=== PATIENT | female | born 1970 | race Caucasian/White ===

== ENCOUNTER → 2024-04-02 12:13 | Outpatient (REF) | payer BC, SELFPAY | LOC: HWRAD 12:13 | PROVIDERS: ATTENDING PHYSICIAN Family Medicine | DX: M54.50 Low back pain, unspecified (principal) | CPT/HCPCS: 72110; 72170 ==

== ENCOUNTER 2025-06-05 21:24 | Emergency (ER) | payer BC, SELFPAY ==
[2025-06-05 21:25] VITALS: BP 127/81
--- NOTE | 2025-06-05 22:54 | ED.GENMED ---
History of Present Illness
<June Buck DO, Resident - Last Filed: 06/06/25 00:49>
General
Chief Complaint: Back Pain
Source: patient
Exam Limitations: none
Time Seen by Provider: 06/05/25 22:54
Nursing documentation reviewed up to this point in time: agreed with
History of Present Illness
History of Present Illness:
Patient is a 54-year-old female PMH hypothyroidism presenting with pain in left hip and lower back. Patient is in usual state of health until today about 7 PM when she was walking down her driveway while carrying a 20 pound package. Patient felt a
'pop' in her left hip followed by excruciating pain. Patient says the pain starts in her low back and radiates to the front near her pubic bone. Patient states she was in so much pain she threw up. Patient denies this ever happening before.
Patient does have a history of bursitis in the left hip. Patient describes the pain as 10 out of 10. Patient states she is more comfortable with her left leg flexed. Patient can bear weight. Patient denies urinary symptoms. Patient denies all
other ROS.
Past History
<June Buck DO, Resident - Last Filed: 06/06/25 00:49>
Past History
ED Past Medical History: Hypothyroidism and Other (uterine fibroids)
Review of Systems
<June Buck DO, Resident - Last Filed: 06/06/25 00:49>
Review of Systems
Allergies reviewed?: Yes
All Other Systems: ROS reviewed and negative except as documented in HPI and ROS
Constitutional: Reports no symptoms
EENT: Reports no symptoms
Respiratory: Reports no symptoms
Cardiac: Reports no symptoms
ABD/GI: Reports vomiting and other (Lower abdominal pain left-sided)
: Reports flank pain (Left-sided)
Musculoskeletal: Reports joint pain (Sacroiliac pain) and back pain
Skin: Reports no symptoms
Neurological: Reports no symptoms
Endocrine: Reports no symptoms
Hematologic/Lymphatic: Reports no symptoms
Psychiatric: Reports no symptoms
Phy Exam
<June Buck DO, Resident - Last Filed: 06/06/25 00:49>
General Physical Exam
General Presentation: moderate distress
General age: appears stated age
General Skin: warm and dry
General Habitus: normal
Cardiovascular Exam
Cardiovascular Exam: regular rate/rhythm
Heart Sounds: normal
Pulmonary Exam
Pulmonary Exam: lungs clear, no respiratory distress, no crackles and no wheezing
Gastrointestinal Exam
Gastrointestinal Exam: normal bowel sounds, non tender, soft and non distended
Neurological Exam
Neurological Exam: alert and oriented x3
Musculoskeletal Exam
Musculoskeletal Exam: back tenderness and other (Pain on palpation of the left hip left lower back and sacroiliac joint.)
Skin Exam
Skin Exam: normal color
Course
<June Buck DO, Resident - Last Filed: 06/06/25 00:49>
Orders/Labs/Results
Orders:
Orders
06/05/25 23:14
CT Abd/pelvis Wo Iv Cont Urgent
Comment:
Reason For Exam: Hip and lower abdominal pain, CVA tenderness
Ketorolac [Toradol] 30 mg IV NOW STA
Ondansetron Injectable [Zofran] 4 mg IV NOW STA
06/06/25 00:02
HYDROmorphone [Dilaudid] 0.5 mg IV NOW STA
06/06/25 00:59
Ondansetron Injectable [Zofran] 4 mg IV NOW STA
06/06/25 01:05
Scopolamine [Transderm-Scop] 1 patch TRANSDERM NOW STA
Vital Signs
Initial and Last Documented VS:
Initial Vital Signs
Temp Pulse Resp BP Pulse Ox
98.0 F 106 20 127/81 99
08/20/25 21:25 06/05/25 21:25 06/05/25 21:25 06/05/25 21:25 06/05/25 21:25
Last Documented Vital Signs
Temp Pulse Resp BP Pulse Ox
98.0 F 80 18 136/72 99
06/05/25 21:25 06/05/25 23:59 06/05/25 23:59 06/05/25 23:59 06/05/25 23:59
<Cintia Dickinson DO - Last Filed: 06/06/25 01:17>
Orders/Labs/Results
Orders:
Orders
06/05/25 23:14
CT Abd/pelvis Wo Iv Cont Urgent
Comment:
Reason For Exam: Hip and lower abdominal pain, CVA tenderness
Ketorolac [Toradol] 30 mg IV NOW STA
Ondansetron Injectable [Zofran] 4 mg IV NOW STA
06/06/25 00:02
HYDROmorphone [Dilaudid] 0.5 mg IV NOW STA
06/06/25 00:59
Ondansetron Injectable [Zofran] 4 mg IV NOW STA
06/06/25 01:05
Scopolamine [Transderm-Scop] 1 patch TRANSDERM NOW STA
Vital Signs
Initial and Last Documented VS:
Initial Vital Signs
Temp Pulse Resp BP Pulse Ox
98.0 F 106 20 127/81 99
06/05/25 21:25 06/05/25 21:25 06/05/25 21:25 06/05/25 21:25 06/05/25 21:25
Last Documented Vital Signs
Temp Pulse Resp BP Pulse Ox
98.0 F 80 18 136/72 99
06/05/25 21:25 06/05/25 23:59 06/05/25 23:59 06/05/25 23:59 06/05/25 23:59
<June Buck DO, Resident - Last Filed: 06/06/25 00:49>
MDM/Problems Addressed
Differential Diagnosis Includes:
SI joint sprain/strain, kidney stone
MDM/Problems Addressed:
Zofran and Toradol for symptom management. Put in CTAP Non-con
12:10 CT revealed a soft tissue density mass within the right adnexa abutting the right aspect of the uterus measuring 6.7X 4.0 cm likely an exophytic fibroid. Patient has known history of fibroids followed by gynecology.
Patient's pain not alleviated by Toradol. Will give 0.5 Dilaudid for pain management. Nausea improved with zofran.
Will discharge with referral to ortho, recomendations for rest, ice, NSAIDs and will give short course of percocet. Patient does not want crutches or zofran prescription.
<June Buck DO, Resident - Last Filed: 06/06/25 00:49>
*Pulse Oximetry
SaO2: 99
Oxygen Mode of Delivery: Room air
Patient hypoxic: no
<Cintia Dickinson DO - Last Filed: 06/06/25 01:17>
*Radiology
Radiology exam reviewed: radiology read reviewed
*Critical Care Note
Total Time (30-74mins, 75-104mins- exclusive of procedures): Not Applicable
ED Attending Note
<June Buck DO, Resident - Last Filed: 06/06/25 00:49>
-
Portions of this chart may have been created with voice recognition software.� Occasional wrong word or��sound alike� substitutions may have occurred due to the inherent limitations of voice recognition software.
<Cintia Dickinson DO - Last Filed: 06/06/25 01:17>
ED Attending Note
Patient seen and examined by attending physician: Yes
I performed the substantive portion of visit, reviewed & personally made and approve the management plan that is documented in note by myself or CHAD.: Yes
ED Attending Note:
This is a 54-year-old woman with no significant past medical history save for hypothyroidism, basal cell skin cancer removal.
She states tonight around 7:30 PM she bent over to bean picker a 20 pound object and wall walking up her driveway, carrying said object she felt a sudden pop in her left hip with sudden severe pain left posterior lateral hip that radiates to her left
lower quadrant. She denies fall. No weakness nor numbness. No history of similar episodes of pain. She does note some nausea and vomiting associated with severe pain.
She is able to bear some weight but admits that left hip pain is worse with extension and with bearing weight, improved slightly with hip and knee flexed.
She has not taken anything for discomfort.
She denies dysuria and urgency and or hematuria. No saddle anesthesia. No radiation of pain down her leg.
54-year-old woman appears her stated age, awake and alert, appears in moderate distress. Lying Semi-[place]'s on stretcher, left hip and knee slightly flexed. Somewhat resistant to move.
Skin is warm and dry, normal color. No rash.
Heart is regular rate and rhythm.
Lungs are clear to auscultation. No respiratory distress.
Abdomen is soft, nontender, no palpable masses. Mild left CVA tenderness to palpation.
There is mild to moderate tenderness left lateral hip, moderate to exquisite tenderness left SI joint. There is full passive range of motion left hip with mild increased pain of left hip with full extension as well as with internal rotation. There
is no leg length discrepancy.
Mild tenderness left lower lumbar paravertebral musculature. No midline bony vertebral tenderness.
Extremities: Peripheral pulses are full and equal bilaterally. No clubbing or cyanosis nor edema. Strength and sensation intact.
No focal neuro deficits. Awake alert and oriented x 3.
Concern for acute sprain strain left hip/left SI joint, acute lumbosacral strain sprain. Other consideration is renal colic/left ureteric stone.
Abdomen is soft without appreciable tenderness. Diverticulitis, colitis, UTI are unlikely.
Will medicate for pain and nausea with Toradol and Zofran. Will plan for CT abdomen pelvis without IV contrast.
00:15
Telephone call from [facility] radiologist. CAT scan shows a right pelvic solid mass that appears to be an exophytic fibroid. Other consideration is right ovarian mass/hemorrhagic cyst. Otherwise CT is unremarkable. No evidence of ureteric stone.
No bony abnormalities.
Right pelvic mass is well-known. Patient has history of right pelvic exophytic fibroid and follows regularly with [facility]. As this exophytic fibroid is on the right side, likely an incidental finding and not related to current left posterior lateral
hip pain, left low back pain.
I highly suspect musculoskeletal pain such as left SI joint sprain/strain, left hip sprain.
Thus far no significant improvement in pain after IV dose of Toradol. Will trial an IV dose of Dilaudid. Nausea has resolved.
01:00
Pain is markedly improved after an IV dose of Dilaudid.
Patient able to stand unassisted. She continues with some pain left posterior lateral hip but standing without difficulty. She declines crutches.
Nausea has returned more so with movement. Will give an additional dose of IV Zofran and will place scopolamine patch.
Will plan for discharge to home with prescription for diclofenac as well as a small prescription for Percocet. Will also prescribe Zofran for as needed nausea.
Will refer to orthopedics for follow-up and recommend follow-up with PCP as well.
Discharge Plan
Departure
Patient Disposition: Home (Routine Discharge)
Date of Disposition: 06/06/25
Time of Disposition: 01:17
Patient with high blood pressure during this ER visit?: No
Condition: Good
Discharge Problem:
acute left hip sprain/strain, acute sprain left SI joint
Instructions: Low Back Pain (DC), Sacroiliac joint pain - ED (DC), Hip pain - ED (DC)
Prescriptions:
New
oxycodone-acetaminophen [Percocet] 5-325 mg Tablet
1 tab PO Q6HPRN PRN (Reason: pain) Qty: 10 0RF
diclofenac sodium 75 mg tablet,delayed release (DR/EC)
75 mg PO BID PRN (Reason: pain) Qty: 30 0RF
ondansetron 4 mg tablet,disintegrating
4 mg PO QID PRN (Reason: nausea and vomiting) Qty: 20 0RF
Referrals:
Rolando Alatorre MD [Active, Orthopedics]
UNKNOWN - PT DOES,NOT KNOW [Unknown Provider]
Activity Restrictions/Additional Instructions:
Please take NSAIDs for pain management. Prescribing a short course of Percocet as needed for pain. Rest and ice for first 24 hours. Please follow-up with Ortho, referral provided.
Interventions
Interventions:
*Risk Screen - Suicide Last Done: 06/05/25 22:02
*General Assessment Last Done: 06/05/25 21:25
*Neglect/Abuse Screening Last Done: 06/05/25 22:02
*ED- Fall Risk Assessment Last Done: 06/05/25 22:02
*ED COVID-19 Vaccine History Last Done: 06/05/25 22:02
ED-Musculoskeletal Assessment Last Done: 06/05/25 22:37
Discharge Date and Time
Print Language: TUNISIAN
[2025-06-05] MEDS: TORADOL 30 MG IV (23:22)
[2025-06-05] MEDS: ZOFRAN 4 MG IV (23:23)
[2025-06-05 23:59] VITALS: BP 136/72
[2025-06-06] MEDS: DILAUDID 0.5 MG IV (00:11)
[2025-06-06] MEDS: ZOFRAN 4 MG IV (01:10)
[2025-06-06] MEDS: TRANSDERM-SCOP 1 PATCH TRANSDERM (01:22)
[2025-06-06 01:50] VITALS: BP 118/72
== END 2025-06-06 01:52 | disposition home or self-care (01) ==
LOC: EMR 21:24
PROVIDERS: EMERGENCY PHYSICIAN Emergency Medicine; FAMILY PHYSICIAN Family Medicine
DX: S73.102A Unspecified sprain of left hip, initial encounter (principal); S76.012A Strain of muscle, fascia and tendon of left hip, initial encounter; S33.6XXA Sprain of sacroiliac joint, initial encounter; X58.XXXA Exposure to other specified factors, initial encounter; Y93.01 Activity, walking, marching and hiking; Y92.008 Other place in unspecified non-institutional (private) residence as the place of occurrence of the external cause; D25.9 Leiomyoma of uterus, unspecified; E03.9 Hypothyroidism, unspecified
CPT/HCPCS: 99284; 96374; 96375 ×2; 96376; 74176